=== PATIENT | male | born 1955 | race Caucasian/White ===

== ENCOUNTER → 2018-02-05 | Outpatient (CLI) | payer OTHER | END | disposition home or self-care (01) | DX: Z01.818 Encounter for other preprocedural examination (principal); R26.2 Difficulty in walking, not elsewhere classified; M25.551 Pain in right hip; M25.651 Stiffness of right hip, not elsewhere classified; Z74.1 Need for assistance with personal care; M62.81 Muscle weakness (generalized); M16.11 Unilateral primary osteoarthritis, right hip | CPT/HCPCS: 97161 GP; 97165 GO; 97530 GP; 97535 GO ==

== ENCOUNTER → 2018-02-21 | Outpatient (CLI) | payer OTHER ==
[~2018-02-21] MED LIST: FEOSOL325 MG PO; MICROZIDE12.5 M1 PO; NEXIUM20 MG PO; NORVASC5 MG PO; ZESTRIL40 MG PO
== END | disposition home or self-care (01) ==
LOC: NUC 06:28
DX: Z01.810 Encounter for preprocedural cardiovascular examination (principal); I44.7 Left bundle-branch block, unspecified; I25.89 Other forms of chronic ischemic heart disease; R94.39 Abnormal result of other cardiovascular function study
CPT/HCPCS: 78452; 93017; A9500; J2785

== ENCOUNTER 2018-02-22 06:52 | Day surgery (SDC) | payer OTHER | END 2018-02-22 13:12 | disposition home or self-care (01) | LOC: CATH 06:52 | DX: I11.9 Hypertensive heart disease without heart failure (principal); I44.7 Left bundle-branch block, unspecified; E78.5 Hyperlipidemia, unspecified; E66.9 Obesity, unspecified; Z68.33 Body mass index [BMI] 33.0-33.9, adult; M16.11 Unilateral primary osteoarthritis, right hip; Z87.891 Personal history of nicotine dependence | CPT/HCPCS: C1769; C1887; J1644; J2250; J3010 ==